=== PATIENT | male | born 1980 ===

== ENCOUNTER 2020-05-31 13:40 | Outpatient (CLI) | payer OTHER ==
[2020-05-31] MEDS ORDERED: Gadobenate Dimeglumine 529 MG/1 ML (20ML VIAL) ONE (14:30)
[2020-05-31] MEDS ORDERED: Iopamidol 300 61% 50 ML VIAL FS ONE (14:30)
[2020-05-31] MEDS ORDERED: Lidocaine 1% PF 10 ML AMP ONE (14:30)
[2020-05-31] MEDS ORDERED: EPINEPHrine 1 MG/ML AMP ONE (14:30)
[2020-05-31] MEDS ORDERED: Magnevist 469MG/ML 20 ML VIAL ONE (15:19)
--- NOTE | 2020-05-31 15:51 | MRI ---
EXAM: MR arthrogram right shoulder PROVIDED CLINICAL HISTORY: Pain COMPARISON: None FINDINGS: Evaluation is limited due to patient motion. There is fluid signal intensity noted involving the interstitium and/or bursal surface fibers of the distal conjoined tendon at the footplate compatible with low-grade partial thickness interstitial or bursal surface tearing. The components of the rotator cuff appear otherwise grossly intact. There is abnormal signal present in the superior labrum compatible with SLAP tear. The glenoid labrum appears otherwise normal. No focal articular cartilage defect is apparent. There is greater than physiologic subacromial subdeltoid bursal fluid which does not contain contrast material. There is lateral downsloping of the acromion which narrows the subacromial space. 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 IMPRESSION: 1. Limited study due to motion. 2. SLAP tear. 3. Partial thickness bursal surface or interstitial tear involving the distal conjoined tendon at the footplate. 4. Lateral downsloping of the acromion with greater than physiologic subacromial subdeltoid bursal fl uid and acromioclavicular joint osteoarthrosis. Correlate with concerns for subacromial impingement.
--- NOTE | 2020-05-31 16:20 | RAD ---
EXAM: Right shoulder arthrogram PROVIDED CLINICAL HISTORY: Right shoulder pain. COMPARISON: None TECHNIQUE: The procedure including the risks and complications were explained to the patient, and informed conse nt was obtained. Patient was placed on the fluoroscopy table in the supine position. The right shoulder was placed in external rotation, and an area was marked overlying the upper one third of the glenohumeral joint. The skin and subcutaneous tissues were infiltrated with buffered 1% lidocaine for local anesthesia. A 22-gauge spinal needle was advanced into the right glenohumeral joint. The inner stylette was removed, and a small amount of contrast was injected confirming free flow of contrast away from the t ip of the needle. Approximately 12 mL of a mixture initially containing 2 mL of gadolinium contrast, 8 mL of Isovue-300 contrast, sterile water, lidocaine, and a small amount of epinephrine wa s instilled into the right glenohumeral joint. The needle was removed, and hemostasis was achieved with direct pressure. The patient tolerated the procedure well and without immediate complication. FINDINGS: Successful right shoulder arthrogram. Additional findings. IMPRESSION: Technically successful right shoulder arthrogram.
== END 2020-05-31 13:41 | disposition home or self-care (01) ==
LOC: RAD 13:40
PROVIDERS: ATTEND Family Medicine
DX: S46.091D Other injury of muscle(s) and tendon(s) of the rotator cuff of right shoulder, subsequent encounter (principal); S43.431D Superior glenoid labrum lesion of right shoulder, subsequent encounter
CPT/HCPCS: 23350; A9577; A9579; J0171; J2001; Q9967